=== PATIENT | female | born 1995 | race Caucasian/White ===

== ENCOUNTER 2023-07-04 19:08 | Emergency (ER) | payer OTHER, SELFPAY ==
[~2023-07-04] VITALS: Ht 165.1 cm; Wt 65.4 kg
[~2023-07-04 19:08] MED LIST: AMBI10TA PO; PROP60TA14 PO; SUBO8MIS SL; TOPA1TAB PO; TOPI200T7 PO; TRAZ-252 PO; XANA0.5T PO; ZOLO100T PO
[2023-07-04] MEDS ORDERED: METH-1177 PO (19:15)
[2023-07-04 20:53] LABS: RSV AMPLIFICATION NEGATIVE (NEGATIVE)
[2023-07-05 01:15] VITALS: BP 114/69; TEMP 98.8; O2SAT 100
== END 2023-07-05 01:48 | disposition home or self-care (01) ==
LOC: M ED 19:08
DX: J02.9 Acute pharyngitis, unspecified (principal); F15.10 Other stimulant abuse, uncomplicated; F17.299 Nicotine dependence, other tobacco product, with unspecified nicotine-induced disorders; F43.10 Post-traumatic stress disorder, unspecified; F32.A Depression, unspecified; F41.9 Anxiety disorder, unspecified; Z79.891 Long term (current) use of opiate analgesic

== ENCOUNTER → 2023-07-30 | Outpatient (CLI) | payer SELFPAY ==
[~2023-07-30] MED LIST changes: +METH-1177 PO
[2023-07-30 10:53] LABS: HEMOGLOBIN 12.7 g/dl (12.0-15.5); MEAN CORPUSCULAR HEMOGLOBIN 29.7 pg (27.0-33.0); MEAN CORPUSCULAR HGB CONC 33.4 g/dl (32.0-36.5); MEAN CORPUSCULAR VOLUME 88.8 fl (80.0-96.0); PLATELET COUNT, AUTOMATED 233 10^3/uL (150-450); RED BLOOD COUNT 4.28 10^6/uL (4.00-5.40); WHITE BLOOD COUNT 6.2 10^3/uL (4.0-10.0)
[2023-07-30 11:42] LABS: HCG, SERUM QUALITATIVE NEGATIVE (NEGATIVE)
[2023-07-30 11:57] LABS: HIV 1&2 SCREEN NEGATIVE (NEGATIVE)
[2023-07-30 12:06] LABS: HEPATITIS C VIRUS ABY INDEX 0.03 INDEX (<0.8)
[2023-07-30 13:24] LABS: CHLAMYDIA DNA AMPLIFICATION NEGATIVE (NEGATIVE); GC DNA AMPLIFICATION NEGATIVE (NEGATIVE)
== END ==
LOC: M LAB 09:58
PROVIDERS: ATTEND Family Medicine
DX: F11.20 Opioid dependence, uncomplicated (principal)

== ENCOUNTER → 2023-10-21 | Outpatient (CLI) | payer MEDICAID, SELFPAY | LOC: M LAB 09:56 | PROVIDERS: ATTEND Family Medicine | DX: F11.20 Opioid dependence, uncomplicated (principal) ==

== ENCOUNTER → 2023-10-22 | Outpatient (CLI) | payer MEDICAID | LOC: M LAB 06:54 | PROVIDERS: ATTEND Family Medicine | DX: F11.20 Opioid dependence, uncomplicated (principal) ==

== ENCOUNTER → 2024-07-20 | Outpatient (CLI) | payer MEDICAID, OTHER ==
[2024-07-20 13:13] LABS: APPEARANCE, URINE HAZY (CLEAR); BACTERIA, URINE AUTO 2+ (NEGATIVE); BILIRUBIN, URINE AUTO NEGATIVE (NEGATIVE); BLOOD, URINE BLOOD NEGATIVE (NEGATIVE); COLOR, URINE AMBER (YELLOW); GLUCOSE, URINE (UA) AUTO NEGATIVE (NEGATIVE); KETONE, URINE AUTO NEGATIVE (NEGATIVE); LEUKOCYTE ESTERASE, URINE AUTO NEGATIVE (NEGATIVE); MUCUS, URINE SMALL (NEGATIVE); NITRITE, URINE AUTO POSITIVE (NEGATIVE); PROTEIN, URINE AUTO NEGATIVE (NEGATIVE); RBC, URINE AUTO 4 /HPF (0-3); SPECIFIC GRAVITY URINE AUTO 1.026 (1.002-1.035); SQUAMOUS EPITHELIAL CELL UR AU 2 /HPF (0-6); WBC, URINE AUTO 2 /HPF (0-3)
[2024-07-20 13:17] LABS: HEMOGLOBIN 13.6 g/dl (12.0-15.5); MEAN CORPUSCULAR VOLUME 88.3 fl (80.0-96.0); PLATELET COUNT, AUTOMATED 225 10^3/uL (150-450); RED BLOOD COUNT 4.53 10^6/uL (4.00-5.40); WHITE BLOOD COUNT 5.4 10^3/uL (4.0-10.0)
[2024-07-20 13:29] LABS: HEMOGLOBIN A1c 4.9 % (4.0-6.0)
[2024-07-20 13:33] LABS: ALKALINE PHOSPHATASE 49 U/L (35-104); ALT/SGPT 17 U/L (7.0-40); AST/SGOT 22 U/L (<34); BILIRUBIN,DIRECT 0.1 MG/DL (<0.4); BILIRUBIN,TOTAL 0.5 MG/DL (0.3-1.2); BLOOD UREA NITROGEN 10 MG/DL (9-23); CALCIUM LEVEL 8.8 MG/DL (8.5-10.1); CARBON DIOXIDE LEVEL 27 MMOL/L (20-31); CHLORIDE LEVEL 101 MMOL/L (98-107); CHOLESTEROL LEVEL 168 MG/DL (<200); CHOLESTEROL RISK RATIO 2.32 (<5); CREATININE FOR GFR 0.87 MG/DL (0.55-1.30); GLOMERULAR FILTRATION RATE > 60.0 (>60); GLUCOSE, FASTING 95 MG/DL (60-100); HDL CHOLESTEROL 72.4 MG/DL (>40); IRON (FE) 106 UG/DL (50-170); LDL CHOLESTEROL 79.4 MG/DL (<100); NON-HDL-C 95.6 MG/DL; POTASSIUM SERUM 3.8 MMOL/L (3.5-5.1); SODIUM LEVEL 139 MMOL/L (136-145); TOTAL PROTEIN 7.3 G/DL (5.7-8.2); TRIGLYCERIDES LEVEL 81 MG/DL (<150)
[2024-07-20 13:34] LABS: FREE T3 3.9 PG/ML (2.3-4.2); TOTAL 25(OH) VITAMIN D 43.2 NG/ML (20.0-100.0); VITAMIN B12 LEVEL 1315 PG/ML (211-911)
[2024-07-20 13:35] LABS: THYROID STIMULATING HORMONE 3.678 uIU/ML (0.55-4.78)
== END ==
LOC: M LAB 11:26
PROVIDERS: ATTEND Nurse Practitioner Family
DX: Z71.89 Other specified counseling (principal)

== ENCOUNTER 2024-08-03 16:29 | Emergency (ER) | payer OTHER ==
[~2024-08-03] VITALS: Ht 165.1 cm; Wt 54.1 kg
[2024-08-03 16:30] VITALS: BP 147/76; TEMP 98.6; O2SAT 100
== END 2024-08-03 19:05 | disposition left against medical advice (07) ==
LOC: M ED 16:29
DX: Z53.21 Procedure and treatment not carried out due to patient leaving prior to being seen by health care provider (principal)

== ENCOUNTER 2024-10-02 23:07 | Emergency (ER) | payer OTHER ==
[~2024-10-02] VITALS: Ht 162.6 cm; Wt 63.6 kg
[2024-10-02] MEDS ORDERED: SERT50TA29 (23:16)
[2024-10-02] MEDS ORDERED: IBUP80TA (23:16)
[2024-10-02] MEDS ORDERED: AMOX500T2 (23:16)
[2024-10-02] MEDS ORDERED: DEXTROAMP-AMPHETAMIN (23:16)
[2024-10-03 01:13] VITALS: BP 102/59; TEMP 99.5; O2SAT 98
== END 2024-10-03 02:35 | disposition left against medical advice (07) ==
LOC: M ED 23:07
DX: Z53.21 Procedure and treatment not carried out due to patient leaving prior to being seen by health care provider (principal)

== ENCOUNTER 2024-10-27 20:50 | Emergency (ER) | payer OTHER ==
[~2024-10-27] VITALS: Ht 165.1 cm; Wt 60.4 kg
[~2024-10-27 20:50] MED LIST changes: -AMBI10TA PO; +AMOX500T2; +DEXTROAMP-AMPHETAMIN; +IBUP80TA; +SERT50TA29; +TOPI-14 PO; -TOPI200T7 PO; +ZOLP-533 PO
[2024-10-27 23:42] VITALS: BP 102/51; TEMP 98.5; O2SAT 100
== END 2024-10-27 23:56 | disposition left against medical advice (07) ==
LOC: M ED 20:50
DX: Z53.21 Procedure and treatment not carried out due to patient leaving prior to being seen by health care provider (principal)

== ENCOUNTER → 2025-03-24 | Outpatient (CLI) | payer OTHER | LOC: M SLEEP HO 11:37 | PROVIDERS: ATTEND Family Medicine | DX: R06.83 Snoring (principal) ==

== ENCOUNTER → 2025-06-03 | Outpatient (CLI) | payer OTHER | LOC: M WHC 09:09 | PROVIDERS: ATTEND Physician Assistant | DX: R10.22 Pelvic and perineal pain left side (principal) ==